=== PATIENT | female | born 1985 | race Caucasian/White ===

== ENCOUNTER 2017-12-31 09:31 | Inpatient (IN) | payer MEDICAID ==
[~2017-12-31] VITALS: Ht 162.6 cm; Wt 80.7 kg
[2017-12-31] VITALS (55 sets, daily range): BP systolic 116–137; BP diastolic 56–92; PULSE 68–110; RESP 18–20; TEMP 97.6–98.1; O2SAT 98–99
[2017-12-31] MEDS ORDERED: LACTATED RINGER'S 1000 ML INJ 1,000 ML IV PRN (10:09)
[2017-12-31] MEDS ORDERED: ONDANSETRON HCL 4 MG/2 ML VIAL IV PUSH PRN (10:15)
[2017-12-31] MEDS ORDERED: CITRIC ACID-SODIUM CITRATE LIQ 30 ML UDC PO SCH (10:15)
[2017-12-31] MEDS ORDERED: LIDOCAINE HCL 1% 50 ML VIAL INFIL PRN (10:15)
[2017-12-31] MEDS ORDERED: OXYTOCIN 30 UNITS-500ML PREMIX 500 ML IV ONE (10:15)
[2017-12-31] MEDS ORDERED: SODIUM CHLORID 0.9% 500 ML INJ 500 ML IV PRN (10:15)
[2017-12-31] MEDS ORDERED: diphenhydrAMINE HCL 50 MG/ML VIAL IV PUSH PRN (10:15)
[2017-12-31] MEDS ORDERED: MINERAL OIL 10 ML VIAL TOPICAL PRN (10:15)
[2017-12-31] MEDS ORDERED: LIDOCAINE HCL 1% 50 ML VIAL I-DERMAL PRN (10:15)
--- NOTE | 2017-12-31 10:17 | PD ---
HPI Chief Complaint ROM Date Seen: Dec 31, 2017 Time Seen: 10:12 Travel History International Travel<30 Days: No Contact w/Intl Traveler<30Days: No Known Affected Area: No History of Present Illness HPI 32y/o @ 39.2wks. She has PNC with Dr. Haji. She presents with c/o ROM (light meconium) at 09:00. +Ctx q5m. Decr FM. No VB. is uncomplicated and was initiated in [place]. Records from [place] on chart. Weeks Gestation: 39 Para: 0 : 2 History Past Medical History Medical History: Denies Significant Hx Obstetric History Obstetric History 1. SAB 2. current Past Surgical History Surgical History: No Previous Surgery Family History Family History: Negative Social History Alcohol Use: No Tobacco Use: No Substance Abuse: No Allergies-Medications (Allergen,Severity, Reaction): Coded Allergies: No Known Allergies (Unverified , 12/31/17) Narrative Medication PNVs Review of Systems Except as stated in HPI: all other systems reviewed are Neg Physical Exam Narrative General: well developed, well nourished, no acute distress HEENT: normocephalic atraumatic, extraocular movements intact, neck supple Abdomen: soft, gravid, nontender, nondistended Uterus: fundus term Extremities: full range of motion Skin: normal coloration, no rashes, no suspicious skin lesions noted Neurologic: cranial nerves 2-12 grossly intact, normal muscle tone, normal gait Psychiatric: normal mood and affect, appropriate FHTs: 140s, +accels, no decels, moderate variability, reactive [place]: ctx q5m Cvx: 1/70/-2 Data Data Vital Signs Reviewed: Yes Orders Orders Vital Signs (Adult) .ON ADMISSION (12/31/17 10:00) ^ Labor Status (12/31/17 10:00) ^ Non Stress Test (12/31/17 10:00) Admit To Inpatient (12/31/17 ) Vital Signs (Adult) .Per protocol (12/31/17 10:09) Heart (12/31/17 10:09) Amnioinfusion (12/31/17 10:09) Urinary Catheter Management .ONCE (12/31/17 10:09) Diet Liquid (12/31/17 Lunch) Lactated Ringer's 1000 Ml Inj (Lr 1000 M (12/31/17 10:09) Lactated Ringer's 1000 Ml Inj (Lr 1000 M (12/31/17 10:09) Sodium Chlorid 0.9% 500 Ml Inj (Ns 500 M (12/31/17 10:15) Sodium Chlor 0.9% 1000 Ml Inj (Ns 1000 M (12/31/17 10:29) Lidocaine 1% Inj (50 Ml) (Xylocaine 1% I (12/31/17 10:15) Citric Acid-Sodium Citrate Liq (Bicitra (12/31/17 10:15) Ondansetron Inj (Zofran Inj) (12/31/17 10:15) Fentanyl Inj (Fentanyl Inj) (12/31/17 10:15) Fentanyl Inj (Fentanyl Inj) (12/31/17 10:15) Complete Blood Count With Diff (12/31/17 10:09) Hold Clot (12/31/17 10:09) Abo/Rh Blood Type (12/31/17 10:09) Urinalysis - C+S If Indicated (12/31/17 10:09) Drug Screen, Random Urine (12/31/17 10:09) Ob/Psych Drug Screen, Urine (12/31/17 10:09) Resp Oxygen Non Rebreathe Mask (12/31/17 ) ^ Epidural / Intrathecal Infus (12/31/17 10:09) Oxytocin 30 Units-500ml Premix (Pitocin (12/31/17 10:15) Lidocaine 1% Inj (50 Ml) (Xylocaine 1% I (12/31/17 10:15) Light Mineral Oil (Muri-Lube Oil) (12/31/17 10:15) Inpatient Certification (12/31/17 ) ^ Non Stress Test (12/31/17 10:09) Response To Medication .Post New Med Administration, Reaction (12/31/17 10:09) ^ Discontinue Medication (12/31/17 10:09) Oxytocin Drip (2-2-30) (12/31/17 10:15) Diphenhydramine Inj (Benadryl Inj) (12/31/17 10:15) Group B Strep: Negative MDM Plan 32y/o @ 39.2wks with ROM (light [facility]). -- admit to L&D -- CEFM/toco -- epidural/frausto PRN -- CLD -- FHTs cat1 -- pitocin augmentation PRN Dispo: Dr. Calderon (out of town collection clerk) notified of pt status and agrees with plan of care. He will assume care of the pt. Courtesy orders placed. Diagnosis Diagnosis: Primary Impression: 39 weeks gestation of Additional Impressions: Amniotic fluid leaking Uterine contractions during Dawit Coley MD Dec 31, 2017 10:17
[2017-12-31] MEDS ORDERED: SODIUM CHLOR 0.9% 1000 ML INJ 1,000 ML IV PRN (10:29)
[2017-12-31 10:51] LABS: AUTOMATED NEUTROPHIL # 4.9 TH/MM3 (1.8-7.7); BASOPHIL % 0.3 % (0.0-2.0); EOSINOPHIL % 0.5 % (0.0-4.0); HEMATOCRIT 37.8 % (35.0-46.0); HEMOGLOBIN 13.1 GM/DL (11.6-15.3); LYMPH % 23.2 % (9.0-44.0); LYMPHOCYTE # 1.7 TH/MM3 (1.0-4.8); MEAN CELL VOLUME 87.5 FL (80.0-100.0); MEAN CORPUSCULAR HEMOGLOBIN 30.3 PG (27.0-34.0); MEAN CORPUSCULAR HGB CONC 34.6 % (32.0-36.0); MONOCYTE # 0.6 TH/MM3 (0-0.9); PLATELET COUNT 154 TH/MM3 (150-450); RED BLOOD COUNT 4.32 MIL/MM3 (4.00-5.30); WHITE BLOOD COUNT 7.3 TH/MM3 (4.0-11.0)
[2017-12-31 10:55] LABS: AMORPHOUS SEDIMENT, URINE RARE; BACTERIA, URINE OCC /hpf; BILIRUBIN, URINE NEG (NEG); BLOOD, URINE SMALL (NEG); GLUCOSE,URINE NEG (NEG); KETONE, URINE NEG (NEG); MUCUS URINE FEW /lpf (OCC); NITRITE,URINE NEG (NEG); PH, URINE 6.5 (5.0-8.5); SQUAMOUS EPITHELIAL CELL URINE 16 /hpf (0-5); URINE COLOR YELLOW (YELLW/STRAW); URINE LEUKOCYTE ESTERASE NEG (NEG)
[2017-12-31] MEDS ORDERED: OXYTOCIN 30 UNITS-500ML PREMIX 500 ML IV PRN (11:00)
[2017-12-31] MEDS: LACTATED RINGER'S 1000 ML INJ 1,000 ML IV SCH ×3 (13:09→18:35)
[2017-12-31] MEDS ORDERED: fentaNYL 2MCG-BUPIV 0.125% INJ 100 ML ONE (17:30)
--- NOTE | 2017-12-31 17:54 | PD.LABORPN ---
Subjective Subjective Patient laboring has changed with contractions every 2-3 min with out pitocin. She now wants an epidural Objective Vital Signs Vital Signs Date Time Temp Pulse Resp B/P (MAP) Pulse Ox O2 Delivery O2 Flow Rate FiO2 12/31/17 17:00 97.8 20 12/31/17 16:58 80 118/72 (87) 12/31/17 16:57 103 131/92 (105) 12/31/17 14:00 68 18 120/73 (89) 12/31/17 12:51 97.6 20 12/31/17 12:51 71 120/73 (89) 12/31/17 11:10 18 12/31/17 11:05 80 121/76 (91) Objective Pelvic Exam: Cervix: [-] Dilatation: 3 Effacement: 100 Station: -2 Presentation: [-] Membranes: SROM FHT's: Category: 1 Baseline: [-] Reactive: [-] Variability: [-] Decels: [-] Weeks Gestation: 39 Gest Age Assessed Date: Dec 31, 2017 Active labor start date: Dec 31, 2017 Active labor start time: 09:00 Artificial rupture of membrane: No Assessment/Plan Problem List: (1) 39 weeks gestation of ICD Codes: Z3A.39 - 39 weeks gestation of Status: Acute (2) Amniotic fluid leaking ICD Codes: O42.90 - Premature rupture of membranes, unspecified as to length of time between rupture and onset of labor,unspecified weeks of gestation Status: Acute Jose Calderon MD Dec 31, 2017 17:54
[2017-12-31] MEDS ORDERED: fentaNYL 2MCG-BUPIV 0.125% 100 ML EPIDURAL SCH (18:45)
[2017-12-31] MEDS ORDERED: DO NOT ADMINISTER ANTICOAGULANTS PRN (18:45)
[2017-12-31] MEDS ORDERED: ePHEDrine/NS 25 MG/5 ML SYRINGE IV PUSH PRN (18:45)
[2017-12-31] MEDS ORDERED: NO SYSTEM NARCOTICS PRN (18:45)
[2017-12-31] MEDS ORDERED: Prenatal Vitamin PO (19:32)
--- NOTE | 2017-12-31 22:44 | MH ---
cc: Jose Haji MD DATE OF ADMISSION: 12/31/2017 TIME OF DICTATION: 2228 hours. ADMITTING DIAGNOSIS: Term , spontaneous rupture of membranes. HISTORY OF PRESENT ILLNESS: This is a 32-year-old white female, para 0, with an EDC of 01/05/2018, had spontaneous rupture of membranes at 8 a.m. today without labor. She was admitted to Dr. Calderon in my absence and she is now on Pitocin augmentation with epidural anesthesia and doing well. PAST MEDICAL HISTORY AND PREVIOUS SURGERY: None. MEDICATION: Vitamins. ALLERGIES: NONE. TRANSFUSIONS: None. OBSTETRIC HISTORY: One spontaneous in 2017, did not require D and C. SOCIAL HISTORY: . [place] of [place]. Alcohol, tobacco and drugs are none. FAMILY HISTORY: Noncontributory. PHYSICAL EXAMINATION: GENERAL: Well-nourished, well-developed white female. VITAL SIGNS: Stable. HEENT: Normal. CHEST: Clear. HEART: Regular rate. BREASTS: Symmetrical. ABDOMEN: Gravid. EFW of 4200 grams. PELVIC: Cervix is now 7, complete, vertex, -2 station, ruptured. A as above. PLAN: Continue Pitocin induction. She is aware the baby is large and should she have failure to progress or descend, would need delivery. She had declined a delivery pre labor with the EFW and would like to proceed. Jose Haji MD JAW/rt , 10:27 PM , 10:[address] [facility]
[2018-01-01] VITALS (14 sets, daily range): BP systolic 100–123; BP diastolic 53–78; PULSE 5–94; RESP 16–22; TEMP 97.9–98.7; O2SAT 97–98
[2018-01-01] MEDS ORDERED: LACTATED RINGER'S 1000 ML INJ 1,000 ML IV ONE ×2 (00:10→12:00)
[2018-01-01] MEDS ORDERED: SIMETHICONE 80 MG CHEWABLE TAB PO PRN (00:15)
[2018-01-01] MEDS ORDERED: MEASLES, MUMPS, RUBELLA VACCINE 0.5 ML VIAL SQ ONE (00:15)
[2018-01-01] MEDS ORDERED: ZOLPIDEM TARTRATE 5 MG TAB PO PRN (00:15)
[2018-01-01] MEDS ORDERED: KETOROLAC TROMETHAMINE 30 MG/ML (IVP) VIAL IV PUSH PRN (00:15)
[2018-01-01] MEDS ORDERED: oxyCODONE/ACETAMINOPHEN 5 MG/325 MG TAB PO PRN (00:15)
[2018-01-01] MEDS ORDERED: ONDANSETRON HCL 4 MG/2 ML VIAL IVP PRN (00:15)
[2018-01-01] MEDS: ACETAMINOPHEN 1000 MG/100 ML VIAL IV SCH ×3 (00:15→17:03)
[2018-01-01] MEDS ORDERED: DOCUSATE SODIUM 50 MG/SENNA 8.6 MG TAB PO PRN (00:15)
[2018-01-01] MEDS ORDERED: OXYTOCIN 30 UNITS-500ML PREMIX 500 ML IV ONE (00:15)
[2018-01-01] MEDS ORDERED: ceFAZolin INJ 1,000 MG VIAL ONE (00:20)
[2018-01-01] MEDS ORDERED: diphenhydrAMINE HCL 25 MG CAP PO PRN (00:30)
[2018-01-01] MEDS: LACTATED RINGER'S 1000 ML INJ 1,000 ML IV SCH ×4 (00:40→15:12)
[2018-01-01] MEDS ORDERED: ACETAMINOPHEN 1000 MG/100 ML 100 ML IV ONE (01:07)
[2018-01-01] MEDS ORDERED: ceFAZolin 2 GM PREMIX 50 ML IV SCH (01:15)
[2018-01-01] MEDS ORDERED: MEPERIDINE HCL 25 MG/ML VIAL ONE (01:36)
[2018-01-01] MEDS ORDERED: CITRIC ACID-SODIUM CITRATE LIQ 30 ML UDC PO SCH (01:45)
[2018-01-01] MEDS ORDERED: OXYTOCIN 30 UNITS-500ML PREMIX 500 ML ONE (02:14)
[2018-01-01] MEDS ORDERED: EPIDURAL-NO SYSTEMIC NARCOTICS PRN (03:00)
[2018-01-01] MEDS ORDERED: EPIDURAL-DO NOT ADMINISTER ANTICOAGULANTS PRN (03:00)
[2018-01-01] MEDS ORDERED: EPIDURAL-NALOXONE HCL 0.4 MG/ML AMP IV PUSH PRN (03:00)
[2018-01-01] MEDS ORDERED: EPIDURAL-DIPHENHYDRAMINE HCL 50 MG CAP PO PRN (03:00)
[2018-01-01] MEDS ORDERED: EPIDURAL-DIPHENHYDRAMINE HCL 50 MG/ML VIAL IV PUSH PRN (03:00)
[2018-01-01] MEDS ORDERED: PHENYLEPH/NS 1000 MCG/10 ML SYR IV ONE (12:00)
[2018-01-01] MEDS ORDERED: OXYTOCIN 10 UNIT/ML AMP IV ONE (12:00)
[2018-01-01] MEDS ORDERED: ePHEDrine/NS 25 MG/5 ML SYRINGE IV ONE (12:00)
[2018-01-01] MEDS ORDERED: ONDANSETRON HCL 4 MG/2 ML VIAL IV ONE (12:00)
[2018-01-01] MEDS ORDERED: PROPOFOL 200 MG/20 ML AMP IV ONE (12:00)
[2018-01-01] MEDS ORDERED: LACTATED RINGER'S 1000 ML INJ 1,000 ML IV SCH (13:04)
[2018-01-01] MEDS: IBUPROFEN 600 MG TAB PO PRN (17:17)
[2018-01-01] MEDS ORDERED: OXYTOCIN 30 UNITS-500ML PREMIX 500 ML IV PRN (18:15)
[2018-01-02] MEDS: IBUPROFEN 600 MG TAB PO PRN ×3 (05:29→17:49)
--- NOTE | 2018-01-02 07:26 | HHI.OB ---
Subjective Post Day: 1 Remarks doing well Objective Vitals/I&O Vital Signs Date Time Temp Pulse Resp B/P (MAP) Pulse Ox O2 Delivery O2 Flow Rate FiO2 01/01/18 20:00 98.4 72 18 100/62 (75) 97 01/01/18 15:00 97.9 78 20 119/72 (88) 01/01/18 11:30 98.1 74 18 117/59 (78) 01/01/18 07:50 119/72 (88) Objective Remarks GENERAL: Well-nourished, well-developed patient. ABDOMEN/GI: Abdomen soft, non-tender. Fundus: Firm, non-tender at umbilicus. GENITOURINARY: Light to moderate bleeding. EXTREMITIES: No cyanosis or edema, non-tender, without signs of DVT. Medications and IVs Current Medications Medications (Trade) Dose Ordered Sig/Hue Route Start Time Stop Time Status Last Admin Lactated Ringer's 1,000 ml @ 125 mls/hr Q8H IV 12/31/17 10:09 12/31/17 18:35 Lactated Ringer's 1,000 ml @ 3,000 mls/hr Q20M PRN IV 12/31/17 10:09 Sodium Chloride 500 ml @ 1,000 mls/hr ONCE PRN IV 12/31/17 10:15 Sodium Chloride 1,000 ml @ 100 mls/hr Q10H PRN IV 12/31/17 10:29 (Xylocaine 1% Inj (50 ml)) 0.1 ml UNSCH X1 PRN I-DERMAL 12/31/17 10:15 01/03/18 10:14 (Bicitra Liq) 30 ml MAMMAL CONTROL AGENT PO 12/31/17 10:15 01/04/18 10:14 01/01/18 00:47 (Zofran Inj) 4 mg Q6H PRN IV PUSH 12/31/17 10:15 (fentaNYL INJ) 50 mcg Q1H PRN IV PUSH 12/31/17 10:15 (fentaNYL INJ) 100 mcg Q1H PRN IV PUSH 12/31/17 10:15 (Xylocaine 1% Inj (50 ml)) 10 ml UNSCH X1 PRN INFIL 12/31/17 10:15 01/02/18 10:14 (Muri-Lube Oil) 10 ml UNSCH PRN TOPICAL 12/31/17 10:15 Oxytocin 500 ml @ 0 mls/hr TITRATE PRN IV 12/31/17 11:00 12/31/17 21:50 (Benadryl Inj) 25 mg Q6H PRN IV PUSH 12/31/17 10:15 Fentanyl/ Bupivacaine HCl 100 ml @ 0 mls/hr TITRATE EPIDURAL 12/31/17 18:45 Lactated Ringer's 1,000 ml @ 150 mls/hr Q6H40M IV 01/01/18 00:40 Cefazolin Sodium/ Dextrose 50 ml @ 100 mls/hr MAMMAL CONTROL AGENT IV 01/01/18 01:15 01/05/18 01:14 01/01/18 00:47 (Bicitra Liq) 30 ml MAMMAL CONTROL AGENT PO 01/01/18 01:45 01/05/18 01:44 Lactated Ringer's 1,000 ml @ 100 mls/hr Q10H IV 01/01/18 13:04 01/02/18 09:03 01/01/18 08:18 Oxytocin 500 ml @ 100 mls/hr UNSCH X1 PRN IV 01/01/18 18:15 01/02/18 18:14 (Mylicon Chew) 80 mg QID PRN PO 01/01/18 00:15 (Motrin) 600 mg Q6H PRN PO 01/01/18 00:15 01/02/18 05:29 (Percocet 5-325 Mg) 1 tab Q4H PRN PO 01/01/18 00:15 (Percocet 5-325 Mg) 2 tab Q4H PRN PO 01/01/18 00:15 (Lesly-Colace) 2 tab Q12H PRN PO 01/01/18 00:15 (Ambien) 5 mg HS PRN PO 01/01/18 00:15 (Boostrix Inj) 0.5 ml ONCE ONCE IM 01/03/18 09:00 01/03/18 09:01 (Zofran Inj) 4 mg Q6H PRN IVP 01/01/18 00:15 (Toradol Inj) 30 mg Q6H PRN IV PUSH 01/01/18 00:15 01/03/18 09:00 (Benadryl) 25 mg Q4H PRN PO 01/01/18 00:30 01/04/18 13:00 Assessment/Plan Problem List: (1) 39 weeks gestation of ICD Codes: Z3A.39 - 39 weeks gestation of Status: Acute (2) Amniotic fluid leaking ICD Codes: O42.90 - Premature rupture of membranes, unspecified as to length of time between rupture and onset of labor,unspecified weeks of gestation Status: Acute (3) delivery delivered ICD Codes: O82 - Encounter for delivery without indication Jose Calderon MD Jan 02, 2018 07:26
[2018-01-02 08:10] VITALS: BP 122/63; PULSE 73; RESP 16; TEMP 98.2
[2018-01-02 08:45] LABS: AUTOMATED NEUTROPHIL # 7.4 TH/MM3 (1.8-7.7); BASOPHIL % 0.1 % (0.0-2.0); EOSINOPHIL % 0.4 % (0.0-4.0); HEMATOCRIT 28.9 % (35.0-46.0); HEMOGLOBIN 10.1 GM/DL (11.6-15.3); LYMPH % 15.4 % (9.0-44.0); LYMPHOCYTE # 1.5 TH/MM3 (1.0-4.8); MEAN CELL VOLUME 89.2 FL (80.0-100.0); MEAN CORPUSCULAR HEMOGLOBIN 31.3 PG (27.0-34.0); MEAN CORPUSCULAR HGB CONC 35.1 % (32.0-36.0); MEAN PLATELET VOLUME 9.5 FL (7.0-11.0); MONO % 5.9 % (0.0-8.0); MONOCYTE # 0.6 TH/MM3 (0-0.9); NEUT % 78.2 % (16.0-70.0); PLATELET COUNT 127 TH/MM3 (150-450); RED BLOOD COUNT 3.24 MIL/MM3 (4.00-5.30); RED CELL DISTRIBUTION WIDTH 13.1 % (11.6-17.2); WHITE BLOOD COUNT 9.4 TH/MM3 (4.0-11.0)
[2018-01-02 08:54] LABS: CREATININE 0.51 MG/DL (0.50-1.00)
[2018-01-02 20:50] VITALS: BP 118/74; PULSE 70; RESP 18; TEMP 98.2
[2018-01-03] MEDS: IBUPROFEN 600 MG TAB PO PRN ×3 (00:05→21:00)
[2018-01-03] MEDS: oxyCODONE/ACETAMINOPHEN 5 MG/325 MG TAB PO PRN ×3 (00:06→21:00)
[2018-01-03 08:00] VITALS: BP 127/77; PULSE 77; RESP 20; TEMP 98; O2SAT 96
[2018-01-03] MEDS ORDERED: DIPHTH/TETANUS/ACEL PERTUSSIS (BOOSTER) 0.5 ML VIAL/PFS IM ONE (09:00)
--- NOTE | 2018-01-03 14:12 | MP ---
cc: Jose Haji MD DATE OF OPERATION: 01/01/2018 PREOPERATIVE DIAGNOSES: Term , failure to progress, failure to descend, occiput posterior with nonreassuring heart rate tracing. POSTOPERATIVE DIAGNOSES. Term , failure to progress, failure to descend, occiput posterior with nonreassuring heart rate tracing, delivery, thin meconium-stained fluid, delivered PROCEDURE: The primary low transverse section. ANESTHESIA: Epidural ESTIMATED BLOOD LOSS: 5 mL FLUIDS: 1.5 liters crystalloid. SURGEON: Jose Haji MD OBJECTIVE FINDINGS: Following induction of adequate epidural anesthesia, the patient was prepped and draped supine on the operating table, left lateral tilt position, usual sterile fashion, with the bladder being drained by Bello catheterization. The abdomen was opened through a Pfannenstiel incision using a knife to cut down through the skin to the fascia. The fascia opened transversely, stripped from the muscles, rectus muscle split in the midline and the peritoneum opened sharply without incident. The bladder flaps taken down sharply, retracted with a [place] blade. The lower uterine segment was incised transversely with a knife and extended with blunt dissection with meconium-stained fluid. Baby was in the ROP position. We gently rotated. Vacuum applied to the occiput and used to raise the head through the abdominal wound. Mouth was suctioned, cord clamped and cut and the baby passed to the waiting francisco team. A vigorous female, Apgars were 8 and 9, weight 9 pounds 10 ounces. Cord blood for typing. Placenta manually removed and the uterine cavity cleaned with laps. The uterus was exteriorized and closed in 2 layers running suture, first with a running locking stitch of 0 Vicryl, second with running imbricating stitch of 0 Vicryl. Posterior inspection of the uterus, tubes and ovaries normal. Uterus replaced in the cavity. Irrigation was performed, no bleeding was evident. The bladder flap was closed with running stitch of 3-0 Vicryl. All instruments were removed. Counts were correct. The anterior peritoneum closed with running stitch of 2-0 Vicryl, fascia closed with a running locking stitch of 0 Vicryl, corners to midline and tied. Subcutaneous closed with 3-0 Vicryl and the skin with a running subcuticular 3-0 Monocryl, Dermabond applied. All counts were correct and the patient was awakened and taken to the recovery room in good condition. MD KAT Deluca/rt , 01:24 AM , 01:53 AM BIRDIE
[2018-01-03 20:50] VITALS: BP 138/79; PULSE 68; RESP 18; TEMP 98.1
[2018-01-04] MEDS: IBUPROFEN 600 MG TAB PO PRN (05:27)
[2018-01-04] MEDS: oxyCODONE/ACETAMINOPHEN 5 MG/325 MG TAB PO PRN (05:27)
[2018-01-04 08:10] VITALS: BP 134/86; PULSE 76; RESP 20; O2SAT 98
--- NOTE | 2018-01-04 09:19 | MD ---
cc: Jose Haji MD DATE OF DISCHARGE: 01/04/2018 ADMITTING DIAGNOSIS: 1. Term with spontaneous rupture of membranes. 2. macrosomia. DISCHARGE DIAGNOSES: 1. Term with spontaneous rupture of membranes. 2. macrosomia. 3. Failure to progress. 4. Occiput posterior, nonreassuring heart rate tracing and meconium stained fluid. 5. Delivered. HISTORY OF PRESENT ILLNESS: A 32-year-old white female, para 0-0-1-0, with an LMP of 03/31/2017, EDC of 01/05/2018. Initial care was in [place]. She has been followed by me since 11/30/2017. Her labs were normal. Her strep culture was negative. The day prior to admission, an ultrasound was done to evaluate movement and fluid which showed an EFW of 9 pounds 8 ounces and normal fluid. The patient strongly desired a trial of labor. She had spontaneous rupture of membranes at 8 a.m. on 12/31/2017 and was admitted to the hospital. Dr. Norton was covering for mo at the time. She was begun on Pitocin induction and received epidural anesthesia. On the scrub technician of 01/01/2018, she developed arrest of labor, arrest of descent, dilation, and had late decelerations. was recommended and was performed in the scrub technician of 01/01/2018 and a viable vigorous female. 's were 9 and 9, weight 9 pounds 10 ounces, OP position, light meconium stained fluid. Postop did well with gradual advancement of diet and activity. She was discharged home in excellent condition on 01/04/2018. She was advised NPV, light activity. No driving. Return to see me in 1 week. She is to call for abnormal pain, bleeding, temperature, or signs of infection or depression. She was given a prescription for Percocet 5 one to two p.o. every 4 hours p.r.n. pain #60 and recommended to take OTC Motrin and her vitamins. Jose Haji MD JAW/DL , 08:45 AM , 09:18 AM
== END 2018-01-04 16:52 | disposition home or self-care (01) | DRG 766 ==
LOC: HOBED 09:31 → H2EA 10:19 → H1EA 01-01 02:42
PROVIDERS: ADMIT Obstetrics & Gynecology; ATTEND Obstetrics & Gynecology
PROC: 3E0S3BZ Introduction of Anesthetic Agent into Epidural Space, Percutaneous Approach (ICD-10-PCS; 2017-12-31)
PROC: 10D00Z1 Extraction of Products of Conception, Low, Open Approach (ICD-10-PCS; principal; 2018-01-01)
DX: O36.63X0 Maternal care for excessive fetal growth, third trimester, not applicable or unspecified (principal); O77.0 Labor and delivery complicated by meconium in amniotic fluid; O76 Abnormality in fetal heart rate and rhythm complicating labor and delivery; O62.1 Secondary uterine inertia; Z37.0 Single live birth; Z3A.40 40 weeks gestation of pregnancy
CPT/HCPCS: 59025; 80048; 80307; 81001; 85025; 86900; 86901; G0481; J0131; J0690; J2175; J2370; J2405; J2590; J7120; Q0163